=== PATIENT | female | born 1995 | race Caucasian/White ===

== ENCOUNTER → 2016-11-29 | Outpatient (CLI) | payer BC ==
--- NOTE | ~2016-11-29 | NM22 ---
[facility] A Service of [facility] & [facility] RADIOLOGY TEXT RESULTS PATIENT: SHANNA THAO LOCATION: [facility] : [birth year] UNIT #: [id number] AGE: [address]: Raj Lloyd MD SEX: F ORDER DR: [id number] [facility] [address] [place], [place] [address] [id number] O MR#: [id number] Acc #: [id number] NAME: SHANNA THAO : 1995 SEX: F STUDY DATE/TIME: 11/29/2016 8:35 UNIT: [facility] ROOM: STUDY DESCRIPTION: [place] Hepatobiliary W GB Pharm Attending Physician: Raj Lloyd M.D. Referring Physician: Raj Lloyd M.D. Ordering Physician: Raj Lloyd M.D. Primary Care Physician: Kenna Shnakar M.D. MEDICAL IMAGING REPORT This report is preliminary unless electronic signature is present EXAM HIDA scan with Kinevac CCK, 11/29/2016 HISTORY Epigastric abdominal pain radiating to the right upper quadrant and around to the back with nausea, vomiting, diarrhea, abdominal bloating and acid reflux for 5 years worsening in the past 3 months. FINDINGS The patient received an intravenous injection of 5.38 mCi of technetium 99m tagged Choletec for hepatobiliary imaging. 1 hour following the injection of the radiopharmaceutical the patient received an intravenous injection of 1.2 mcg of Kinevac. There is homogeneous distribution of the radiotracer throughout the liver. Gallbladder activity was seen by 15 minutes postinjection of the radiopharmaceutical. Following Kinevac injection the gallbladder ejection fraction was 94.1% (normal is greater than 30%). IMPRESSION Normal HIDA scan with gallbladder ejection fraction of 94.1%. Dictated by... Nathaniel Weston M.D. THIS IS AN ELECTRONICALLY VERIFIED REPORT Nathaniel Weston M.D. at 11/29/2016 4:32 PM JACQUE/rudy TD: 11/29/2016 11:33 JOB #: [id number] MEDICAL IMAGING REPORT Page 1 of 1 COPY
--- NOTE | ~2016-11-29 | US5 ---
[facility] A Service of [facility] RADIOLOGY TEXT RESULTS PATIENT: SHANNA THAO LOCATION: [facility] : [birth year] UNIT #: [id number] AGE: [address]: Raj Lloyd MD SEX: F ORDER DR: [id number] [facility] [address] [place], [place] [address] [id number] O MR#: [id number] Acc #: [id number] NAME: SHANNA THAO : 1995 SEX: F STUDY DATE/TIME: 11/29/2016 7:45 UNIT: [facility] ROOM: STUDY DESCRIPTION: US Abdominal Complete Attending Physician: Raj Lloyd M.D. Referring Physician: Raj Lloyd M.D. Ordering Physician: Raj Lloyd M.D. Primary Care Physician: Kenna Shankar M.D. MEDICAL IMAGING REPORT This report is preliminary unless electronic signature is present EXAM Abdominal ultrasound complete, 11/29/2016. HISTORY Abdominal pain and nausea for 2 years. Pain has increased over the past year. FINDINGS The liver is homogeneous in echotexture and demonstrates no cystic or solid mass lesions. The intra and extrahepatic bile ducts are not dilated. The gallbladder is normal with no evidence of cholelithiasis, wall thickening or pericholecystic fluid. The common duct measures 2 mm in diameter. The pancreas and spleen are normal. The spleen measures 10.3 cm in greatest diameter. The visualized portions of the abdominal aorta and inferior vena cava are within normal limits. The kidneys are normal bilaterally. IMPRESSION Negative abdominal ultrasound. Dictated by... Nathaniel Weston M.D. THIS IS AN ELECTRONICALLY VERIFIED REPORT Nathaniel Weston M.D. at 11/30/2016 6:31 AM JACQUE/juan manuel TD: 11/29/2016 21:57 JOB #: [id number] MEDICAL IMAGING REPORT Page 1 of 1 COPY
== END | disposition home or self-care (01) ==
LOC: CGUS 07:20
DX: R10.9 Unspecified abdominal pain (principal); K81.9 Cholecystitis, unspecified; K29.70 Gastritis, unspecified, without bleeding
CPT/HCPCS: 76700; 78227; A9537; J2805

== ENCOUNTER → 2016-12-12 | Outpatient (CLI) | payer BC ==
--- NOTE | ~2016-12-12 | CT5 ---
[facility] A Service of [facility] RADIOLOGY TEXT RESULTS PATIENT: SHANNA THAO LOCATION: [facility] : [birth year] UNIT #: [id number] AGE: [address]: Raj Lloyd MD SEX: F ORDER DR: [id number] [place], [place] [address] [id number] O MR#: [id number] Acc #: [id number] NAME: SHANNA THAO : 1995 SEX: F STUDY DATE/TIME: 12/12/2016 13:17 UNIT: [facility] ROOM: STUDY DESCRIPTION: CT Abdomen W Cont Attending Physician: Raj Lloyd M.D. Referring Physician: Raj Lloyd M.D. Ordering Physician: Raj Lloyd M.D. Primary Care Physician: Darron Nichole, [facility] MEDICAL IMAGING REPORT This report is preliminary unless electronic signature is present EXAM CT abdomen with contrast INDICATIONS Right upper quadrant abdominal pain for the past 4 months. PROCEDURE Contrast-enhanced CT of the abdomen and pelvis This CT exam was performed with one or more of the following radiation dose reduction techniques: automatic exposure control, adjustment of mA and/or kV according to patient size, and iterative reconstruction. COMPARISON HIDA scan, 11/29/2016 FINDINGS Abdomen with contrast. The included lung bases are clear. The liver, spleen kidneys adrenal glands pancreas gallbladder unremarkable. The included bowel loops are nondilated. There is moderate colonic stool burden. No aggressive appearing bone lesion. IMPRESSION No acute findings in the abdomen. Dictated by... Geo Oneill M.D. THIS IS AN ELECTRONICALLY VERIFIED REPORT Geo Oneill M.D. at 12/13/2016 12:11 PM EED/marty [facility] A Service [facility] RADIOLOGY TEXT RESULTS PATIENT: SHANNA THAO LOCATION: [facility] : [birth year] UNIT #: [id number] AGE: [address]: Raj Lloyd MD SEX: F ORDER DR: TD: 12/13/2016 02:49 JOB #: [id number] MEDICAL IMAGING REPORT Page 1 of 1 COPY
== END | disposition home or self-care (01) ==
LOC: CCAT 11:24
DX: R10.9 Unspecified abdominal pain (principal)
CPT/HCPCS: 74160; Q9967